=== PATIENT | female | born 1955 | race Caucasian/White ===

== ENCOUNTER 2021-01-27 07:38 | Emergency (ER) | payer MEDICARE, OTHER ==
[2021-01-27] MEDS ORDERED: MEDROL 4MG DOSEP4 MG PO (08:39)
== END 2021-01-27 08:45 | disposition home or self-care (01) ==
LOC: FER 07:38
DX: J30.9 Allergic rhinitis, unspecified (principal); R06.02 Shortness of breath; I10 Essential (primary) hypertension; J45.909 Unspecified asthma, uncomplicated; Z88.8 Allergy status to other drugs, medicaments and biological substances
CPT/HCPCS: 71046

== ENCOUNTER 2021-04-17 11:18 | Emergency (ER) | payer MEDICARE, OTHER ==
[~2021-04-17 11:18] MED LIST: MEDROL 4MG DOSEP4 MG PO
[2021-04-17 12:13] LABS: BASOPHIL 0.4 % (0-2); EOSINOPHIL 2.5 % (0-7); HCT 44.3 % (37.0-47.0); LYMPHOCYTE 24.5 % (15-48); MCH 28.5 pg (25.0-31.0); MCHC 31.6 g/dL (32.0-36.0); MCV 90.2 fL (78.0-100.0); MONOCYTE 5.5 % (0-12); MPV 10.1 fL (6.0-9.5); NEUTROPHIL 66.8 % (41-80); NRBC 0; PLT 235 K/uL (150-400); RBC 4.91 M/uL (4.20-5.40); RDW 13.5 % (11.5-14.0); WBC 7.1 K/uL (4.0-10.5)
[2021-04-17 12:43] LABS: ALBUMIN 4.2 g/dL (3.4-5.0); BUN/CREAT RATIO (CALC) 13.2 RATIO; CREATININE 0.76 mg/dL (0.51-0.95); GLOBULIN (CALCULATION) 3.3 g/dL; INR 0.97 (0.9-1.2); POTASSIUM 4.2 mmol/L (3.5-5.1); PROTHROMBIN TIME 12.3 SECONDS (11.8-13.4); PTT 29.2 SECONDS (24.4-34.7); TOTAL PROTEIN 7.5 g/dL (6.4-8.2)
[2021-04-17 13:15] LABS: BILIRUBIN NEGATIVE (NEGATIVE); BLOOD NEGATIVE Ery/uL (NEGATIVE); CLARITY CLEAR (CLEAR); COLOR YELLOW (YELLOW); GLUCOSE (U) NORMAL (NORMAL); LEUKOCYTES NEGATIVE Leu/uL (NEGATIVE); NITRITE NEGATIVE (NEGATIVE); PROTEIN NEGATIVE (NEGATIVE); SPECIFIC GRAVITY <=1.005 (1.001-1.030); UROBILINOGEN 0.2 mg/dL (0.2-1.0)
[2021-04-17] MEDS ORDERED: ANTIVERT25 MG PO (14:58)
== END 2021-04-17 15:23 | disposition home or self-care (01) ==
LOC: FER 11:18
PROVIDERS: Internal Medicine; Nurse Practitioner Family
DX: R42 Dizziness and giddiness (principal); I10 Essential (primary) hypertension; Z88.8 Allergy status to other drugs, medicaments and biological substances; Z79.899 Other long term (current) drug therapy
CPT/HCPCS: 36415; 70450; 71045; 80053; 81003; 84484; 85025; 85610; 85730; 93005; J7030